=== PATIENT | male | born 1970 | race Caucasian/White ===

== ENCOUNTER → 2025-08-14 13:36 | Outpatient (REF) | payer OTHER, SELFPAY | LOC: RAD 13:36 | PROVIDERS: ATTENDING PHYSICIAN Physician Assistant; FAMILY PHYSICIAN Internal Medicine | DX: M25.50 Pain in unspecified joint (principal) | CPT/HCPCS: 73100; 73120; 73630 ==

== ENCOUNTER → 2025-10-25 06:41 | Outpatient (REF) | payer OTHER, SELFPAY | LOC: MRI 06:41 | PROVIDERS: ATTENDING PHYSICIAN Student in an Organized Health Care Education/Training Program; FAMILY PHYSICIAN Internal Medicine | DX: M65.871 Other synovitis and tenosynovitis, right ankle and foot (principal); M65.90 Unspecified synovitis and tenosynovitis, unspecified site | CPT/HCPCS: 73218; 73718 ==